=== PATIENT | male | born 2000 | race American Indian/Alaskan Native ===

== ENCOUNTER 2020-03-20 01:50 | Emergency (ER) | payer SELFPAY ==
[2020-03-20] MEDS ORDERED: predniSONE 50 MG TAB PO ONE (01:59)
[2020-03-20] MEDS ORDERED: ALBUTEROL 2.5 MG/3 ML NEBU IH ONE (02:00)
[2020-03-20] MEDS ORDERED: IBUPROFEN 600 MG TAB PO ONE (02:00)
[2020-03-20 02:03] VITALS: BP 129/78
--- NOTE | 2020-03-20 02:39 | XRay Report ---
CHEST 1 VIEW 03/20/2020 2:04 AM INDICATION / CLINICAL INFORMATION: dyspnea. COMPARISON: None available. FINDINGS: SUPPORT DEVICES: None. HEART / MEDIASTINUM: No significant abnormality. LUNGS / PLEURA: No significant pulmonary or pleural abnormality. No pneumothorax. ADDITIONAL FINDINGS: No significant additional findings. IMPRESSION: 1. No acute findings. Signer Name: Musa Thayer MD Signed: 03/20/2020 2:34 AM Workstation Name: [id number]
--- NOTE | 2020-03-20 03:21 | Emergency Department Report ---
ED General Adult HPI - General Chief complaint: Chest Pain Stated complaint: ETOH Source: patient Mode of arrival: Ambulatory Limitations: No Limitations - History of Present Illness Initial comments: Patient is a 19-year-old -Armenian male with a history of asthma who presents to the ED with complaint of acute onset persistent shortness of breath, pleuritic right-sided chest wall pain, dry cough and wheezing for the last 2 hours. Patient states that he had been drinking alcohol prior to the onset of the symptoms. Patient also admits to smoking cigarettes but states that he does not have any albuterol inhaler to use at home. Patient denies dizziness, syncope, fever, chills, change in vision, sore throat, nasal and sinus congestion, abdominal pain, nausea and vomiting or diarrhea or body aches and pains and headache. MD Complaint: Shortness of breath; pleuritic right-sided chest wall pain; asthma attack -: Sudden, hour(s) (2) Location: chest Radiation: non-radiation Severity scale (0 -10): 5 Quality: aching, sharp Consistency: constant Improves with: none Worsens with: movement, other (deep inhalation) Associated Symptoms: denies other symptoms, chest pain (right -sided chest wall pain), cough, shortness of breath. denies: confusion, diaphoresis, fever/chills, headaches, loss of appetite, malaise, nausea/vomiting, syncope Treatments Prior to Arrival: none - Related Data Previous Rx's Medication Instructions Recorded Last Taken Type Albuterol Sulfate [Proventil Hfa] 1 - 2 puff IH Q6H PRN #1 hfa.aer.ad 03/20/20 Unknown Rx Ibuprofen [Motrin] 600 mg PO Q8H PRN #20 tablet 03/20/20 Unknown Rx predniSONE [Deltasone] 40 mg PO QDAY #10 tab 03/20/20 Unknown Rx Allergies Allergy/AdvReac Type Severity Reaction Status Date / Time No Known Allergies Allergy Unverified 03/20/20 02:07 ED Review of Systems ROS: Stated complaint: ETOH Other details as noted in HPI Constitutional: denies: chills, fever Eyes: denies: eye pain, eye discharge, vision change ENT: denies: ear pain, throat pain, dental pain, hearing loss, congestion Respiratory: cough, shortness of breath, wheezing Cardiovascular: chest pain (Pleuritic right-sided chest pain). denies: palpitations, dyspnea on exertion, edema, paroxysmal nocturnal dyspnea Endocrine: no symptoms reported Gastrointestinal: denies: abdominal pain, nausea, vomiting, diarrhea Genitourinary: denies: urgency, dysuria Musculoskeletal: denies: back pain, joint swelling, arthralgia Skin: denies: rash, lesions Neurological: denies: headache, weakness, paresthesias Psychiatric: denies: anxiety, depression Hematological/Lymphatic: denies: easy bleeding, easy bruising ED Past Medical Hx - Past Medical History Previous Medical History?: Yes Hx Asthma: Yes - Surgical History Past Surgical History?: No - Social History Smoking Status: Current Every Day Smoker Substance Use Type: None - Medications Home Medications: Home Medications Medication Instructions Recorded Confirmed Last Taken Type Albuterol Sulfate [Proventil Hfa] 1 - 2 puff IH Q6H PRN #1 hfa.aer.ad 03/20/20 Unknown Rx Ibuprofen [Motrin] 600 mg PO Q8H PRN #20 tablet 03/20/20 Unknown Rx predniSONE [Deltasone] 40 mg PO QDAY #10 tab 03/20/20 Unknown Rx ED Physical Exam - General Limitations: No Limitations General appearance: alert, in no apparent distress - Head Head exam: Present: atraumatic, normocephalic, normal inspection - Eye Eye exam: Present: normal appearance, PERRL, EOMI Pupils: Present: normal accommodation - ENT ENT exam: Present: normal exam, normal orophraynx, mucous membranes moist, TM's normal bilaterally, normal external ear exam - Neck Neck exam: Present: normal inspection, full ROM - Respiratory Respiratory exam: Present: wheezes (Mildly diffuse coarse wheezes throughout), chest wall tenderness (Palpable reproducible right-sided chest wall tenderness). Absent: respiratory distress, rales, rhonchi, stridor, accessory muscle use, decreased breath sounds, prolonged expiratory - Cardiovascular Cardiovascular Exam: Present: regular rate, normal rhythm, normal heart sounds. Absent: systolic murmur, diastolic murmur, rubs, gallop - GI/Abdominal GI/Abdominal exam: Present: soft, normal bowel sounds. Absent: distended, tenderness, guarding, rebound, hyperactive bowel sounds, hypoactive bowel sounds, organomegaly, mass - Extremities Exam Extremities exam: Present: normal inspection, full ROM, normal capillary refill - Back Exam Back exam: Present: normal inspection, full ROM. Absent: tenderness, CVA tenderness (R), CVA tenderness (L), muscle spasm, paraspinal tenderness, vertebral tenderness - Neurological Exam Neurological exam: Present: alert, oriented X3, CN II-XII intact, normal gait, reflexes normal - Psychiatric Psychiatric exam: Present: normal affect, normal mood - Skin Skin exam: Present: warm, dry, intact, normal color. Absent: rash ED Course Vital Signs 03/20/20 01:58 Temperature 97.6 F Pulse Rate 96 H Respiratory 20 Rate Blood Pressure 129/78 O2 Sat by Pulse 100 Oximetry ED Medical Decision Making - Radiology Data Radiology results: report reviewed, image reviewed Findings [facility] [address] [place] [address] XRay Report Signed Patient: ELIZABETH FERNÁNDEZ MR#: [id number] : 2000 Acct:[id number] Age/Sex: 19 / M ADM Date: 03/20/20 Loc: ED Attending Dr: Ordering Physician: RAMSES MAJANO Date of Service: 03/20/20 Procedure(s): XR chest 1V ap Accession Number(s): [id number] cc: RAMSES MAJANO Fluoro Time In Minutes: CHEST 1 VIEW 03/20/2020 2:04 AM INDICATION / CLINICAL INFORMATION: dyspnea. COMPARISON: None available. FINDINGS: SUPPORT DEVICES: None. HEART / MEDIASTINUM: No significant abnormality. LUNGS / PLEURA: No significant pulmonary or pleural abnormality. No pneumothorax. ADDITIONAL FINDINGS: No significant additional findings. IMPRESSION: 1. No acute findings. Signer Name: Musa Thayer MD Signed: 03/20/2020 2:34 AM Workstation Name: [id number] Transcribed By: SS Dictated By: Musa Thayer MD Electronically Authenticated By: Musa Thayer MD Signed Date/Time: 03/20/20233 DD/ 3 TD/TT: - Medical Decision Making This is a 19-year-old -Armenian male with a history of asthma who presents to the ED with complaint of acute onset persistent shortness of breath, pleuritic right-sided chest wall pain, dry cough and wheezing for the last 2 hours. Patient states that he had been drinking alcohol prior to the onset of the symptoms. Patient also admits to smoking cigarettes but states that he does not have any albuterol inhaler to use at home. In the ED, patient is alert and oriented x3 and is not in distress. Chest x-ray shows no acute cardiopulmonary abnormalities or pneumonitis. Patient was treated for shortness of breath with albuterol nebulizer and steroids. On reevaluation, patient felt better and was discharged home on medications including albuterol inhaler prescription. Patient was advised to follow-up with his primary care physician in 5 to 7 days for reevaluation or return to the ED immediately if symptoms get worse. - Differential Diagnosis Pneumonia; bronchitis; asthma; URI; Covid-19 Critical care attestation.: If time is entered above; I have spent that time in minutes in the direct care of this critically ill patient, excluding procedure time. ED Disposition Clinical Impression: Shortness of breath, Acute costochondritis Asthma with acute exacerbation in adult Qualifiers: Asthma severity: mild Asthma persistence: persistent Qualified Code(s): J45.31 - Mild persistent asthma with (acute) exacerbation Disposition: DC-01 TO HOME OR SELFCARE Is pt being admited?: No Does the pt Need Aspirin: No Condition: Stable Instructions: Costochondritis, [id number], Shortness of Breath, Adult, [id number], Asthma, Adult, [id number] Additional Instructions: Take medication with food, drink plenty of fluids and follow up with your Primary Care Physician in 5-7 days for reevaluation. Return to the ED immediately if symptoms get worse. Prescriptions: predniSONE [Deltasone] 40 mg PO QDAY #10 tab Ibuprofen [Motrin] 600 mg PO Q8H PRN #20 tablet PRN Reason: Pain Albuterol Sulfate [Proventil Hfa] 1 - 2 puff IH Q6H PRN #1 hfa.aer.ad PRN Reason: Shortness Of Breath Referrals: [facility] [Provider Group] - 3-5 Days Time of Disposition: 03:24 Print Language: K[place]
== END 2020-03-20 03:36 | disposition home or self-care (01) ==
LOC: ED 01:50
DX: J45.901 Unspecified asthma with (acute) exacerbation (principal); M94.0 Chondrocostal junction syndrome [Tietze]; F17.200 Nicotine dependence, unspecified, uncomplicated; Z79.899 Other long term (current) drug therapy
CPT/HCPCS: 71045; 94640; 99283; J7512